=== PATIENT | male | born 1980 | race Caucasian/White ===

== ENCOUNTER 2016-08-27 08:33 | Day surgery (SDC) | payer MEDICAID ==
[~2016-08-27 08:33] MED LIST: Bupivacaine 0.25%/EPINEPHrine 1:200,000 10 ML SDV ONE; Lactated Ringers 1,000 ML IV SCH; Octyl 2-Cyanoacrylate 1 Tube ONE; ceFAZolin 2 GM in Premix Bag 1 BAG IV ONE
[2016-08-27] MEDS ORDERED: Acetaminophen/oxyCODONE 325-10 MG Tab PO PRN (09:42)
--- NOTE | 2016-08-27 09:42 | PCM.PREANE ---
Preanesthetic Assessment - Anesthesia/Transfusion/Family Hx Anesthesia History: Prior Anesthesia Without Reaction Family History of Anesthesia Reaction: Yes (nephew with hx of MH) Transfusion History: No Prior Transfusion(s) - Review of Systems General: No Symptoms Pulmonary: No Symptoms Cardiovascular: No Symptoms Gastrointestinal: No symptoms Neurological: No Symptoms Other: Reports: None - Physical Assessment NPO Status Date: 08/26/16 O2 Sat by Pulse Oximetry: 96 Respiratory Rate: 18 Vital Signs: Last Vital Signs Temp Pulse Resp 18 08/27/16 08:51 BP 133/79 08/27/16 08:51 Pulse Ox 96 08/27/16 08:51 Height: 1.68 m Weight: 90.718 kg ASA Class: 1 Mental Status: Alert & Oriented x3 Airway Class: Mallampati = 1 Dentition: Reports: Normal Dentition ROM/Head Extension: Full Lungs: Clear to auscultation, Normal respiratory effort Cardiovascular: Regular Rate, Regular Rhythm - Allergies Allergies/Adverse Reactions: Allergies Allergy/AdvReac Type Severity Reaction Status Date / Time MMR vaccine Allergy Nausea and Uncoded 08/22/16 13:46 Vomiting - Anesthesia Plan Pre-Op Medication Ordered: None - Acknowledgements Anesthesia Type Planned: General Anesthesia Pt an Appropriate Candidate for the Planned Anesthesia: Yes Alternatives and Risks of Anesthesia Discussed w Pt/Guardian: Yes Pt/Guardian Understands and Agrees with Anesthesia Plan: Yes Additional Comments: Will plan non-triggering anesthetic, No gasses have been used in that OR this morning. Will clean machine per manufacturers recommendations. Will use non triggering anesthetic, (propofol and Deon). Surgeon notified of delay. PreAnesthesia Questionnaire Other HEENT History: wears glasses, has capped upper front tooth Cardiovascular History: Reports: None Respiratory History: Reports: None Gastrointestinal History: Reports: GERD Genitourinary History: Reports: None Musculoskeletal History: Reports: Back pain, chronic, Fracture Other Musculoskeletal History: hx of left foot fx Neurological History: Reports: None Psychiatric History: Reports: None Endocrine/Metabolic History: Reports: Obesity/BMI 30+ Hematologic History: Reports: None Immunologic History: Reports: None Oncologic (Cancer) History: Reports: None Dermatologic History: Reports: None - Past Surgical History Head Surgeries/Procedures: Reports: None HEENT Surgical History: Reports: None Cardiovascular Surgical History: Reports: None Respiratory Surgical History: Reports: None GI Surgical History: Reports: None Male Surgical History: Reports: None Endocrine Surgical History: Reports: None Neurological Surgical History: Reports: None Musculoskeletal Surgical History: Reports: None Oncologic Surgical History: Reports: None Dermatological Surgical History: Reports: None - SUBSTANCE USE Smoking Status *Q: Former Smoker Tobacco Use Within Last Twelve Months: No Recreational Drug Use History: No - HOME MEDS Home Medications: Home Meds Levofloxacin 750 mg PO DAILY 08/22/16 [History] oxyCODONE HCl/Acetaminophen [Percocet 5-325 mg Tablet] 1 tab PO Q6H PRN [History] - CURRENT (IN HOUSE) MEDS Current Meds: Current Medications Lactated Ringer's (Ringers, Lactated) 1,000 mls @ 125 mls/hr IV ASDIRECTED [facility] Last Admin: 08/27/16 08:53 Dose: 125 mls/hr Discontinued Medications Bupivacaine HCl/Epinephrine Bitart (Marcaine 0.25%/Epinephrine 1:200,000) Confirm Administered Dose 20 ml .ROUTE .STK-MED ONE Stop: 08/27/16 07:45 Bupivacaine HCl/Epinephrine Bitart (Marcaine 0.25%/Epinephrine 1:200,000) Confirm Administered Dose 10 ml .ROUTE .STK-MED ONE Stop: 08/27/16 07:45 Cefazolin Sodium/Dextrose 2 gm (/ Premix) 50 mls @ 100 mls/hr IV ONETIME ONE Stop: 08/27/16 05:29 Octyl Cyanoacrylate (Dermabond Advance) Confirm Administered Dose 1 applic .ROUTE .STK-MED ONE Stop: 08/27/16 07:45 Preanesthetic Assessment - ANESTHESIA/TRANSFUSION/FAMILY HX Family History of Anesthesia Reaction: Yes - PHYSICAL ASSESSMENT O2 Sat by Pulse Oximetry: 96 RR: 18 Vital Signs: Last Vital Signs Temp Pulse Resp 18 08/27/16 08:51 BP 133/79 08/27/16 08:51 Pulse Ox 96 08/27/16 08:51 Height: 1.68 m Weight: 90.718 kg - ALLERGIES Allergies/Adverse Reactions: Allergies Allergy/AdvReac Type Severity Reaction Status Date / Time MMR vaccine Allergy Nausea and Uncoded 08/22/16 13:46 Vomiting
[2016-08-27] MEDS ORDERED: Propofol 200 MG/20 ML SDV ONE ×2 (09:46→10:07)
[2016-08-27] MEDS ORDERED: Lidocaine 2% 5 ML SDV ONE (09:47)
[2016-08-27] MEDS ORDERED: fentaNYL 250 MCG/5 ML SDV ONE (09:47)
[2016-08-27] MEDS ORDERED: Rocuronium 10 MG/ML 10 ML Syringe ONE (09:47)
[2016-08-27] MEDS ORDERED: Neostigmine Methylsulfate 1 MG/ML 5 ML Syringe ONE (09:47)
[2016-08-27] MEDS ORDERED: Ondansetron 4 MG/2 ML SDV ONE (09:47)
[2016-08-27] MEDS ORDERED: Ketorolac 30 MG/ML SDV ONE (09:47)
[2016-08-27] MEDS ORDERED: Sodium Chloride 0.9% 20 ML ONE ×2 (09:48→09:58)
[2016-08-27] MEDS ORDERED: Midazolam 1 MG/ML 2 ML SDV ONE (09:48)
[2016-08-27] MEDS ORDERED: HYDROmorphone 2 MG/ML Syringe ONE (09:48)
[2016-08-27] MEDS ORDERED: ceFAZolin 1 GM Vial ONE (09:49)
[2016-08-27] MEDS ORDERED: fentaNYL 100 MCG/2 ML SDV ONE (11:50)
--- NOTE | 2016-08-27 12:12 | PCM.OPNOTE ---
- General Post-Op/Procedure Note Date of Surgery/Procedure: 08/27/16 Findings: 1) gb has severe adherence to surrounding organs, yellow and green, thickened wall cw chronic and acute cholecystitis; [id number] Pre Op Diagnosis: chronic and acute cholecystitis Post-Op Diagnosis: Same Anesthesia Technique: General ET tube Primary Surgeon: Reginald Arreaga Pathology: sent Complications: None Condition: Good
--- NOTE | 2016-08-27 12:55 | PCM.POSTAN ---
POST ANESTHESIA ASSESSMENT - MENTAL STATUS Mental Status: alert, oriented - RESPIRATORY Respiratory Status: respiratory rate WNL, airway patent - CARDIOVASCULAR CV Status: pulse rate WNL, blood pressure stable - GASTROINTESTINAL GI Status: no symptoms - POST OP HYDRATION Hydration Status: adequate & stable
--- NOTE | 2016-08-27 13:13 | OR ---
SURGEON: Reginald Arreaga MD DATE OF PROCEDURE: 08/27/2016 PREOPERATIVE DIAGNOSIS: Chronic and acute cholecystitis. POSTOPERATIVE DIAGNOSIS: Chronic and acute cholecystitis. PROCEDURE PERFORMED: Laparoscopic cholecystectomy. COMPLICATIONS: None. FINDINGS: Gallbladder is severely adherent to surrounding organ and also wall was very thickened. Gallbladder wall was also yellow and green consistent with chronic and acute cholecystitis and wall is thickened. DESCRIPTION OF PROCEDURE: The patient was taken to the operating room and placed in the supine position. After the intubation of general endotracheal anesthesia, the patient's abdomen was prepped and draped in the usual sterile fashion. Using [employer], a 12 mm trocar was placed supraumbilically and then followed with pneumoperitoneum. A 5 mm trocar was placed in the epigastrium and two 5 mm trocars placed in the right upper quadrant. The placement of the last three trocars was done under direct video supervision. Upon gaining entrance to the abdominal cavity, an extensive examination was then performed. The gallbladder was located and identified and retracted to the dome of the liver at the triangle of [place]ot. The cystic duct was clipped three more times and then using the endoscopic clip, was transected with placement of the endoscopic clip and transection was performed with care, ensuring the posterior prong of the instruments were clearly visualized prior to exercising the procedure. The gallbladder was dissected using electrocautery out of the liver bed and then removed using endoscopic bag through the umbilical site. The gallbladder was removed en bloc and there was no bile spillage and this was then followed with extensive irrigation until the bile was clear from blood and bile. The trocars were then removed under direct video supervision. The 12 mm umbilical site was then closed with deep stitches using 0 Vicryl followed with proximal stitches using 3-0 Vicryl and Dermabond. The other three trocar sites were closed with 3-0 Vicryl followed with approximation of skin with Dermabond. The patient was then awakened and extubated and transferred to the recovery room in hemodynamically stable condition. At the conclusion of the surgery, before closing the abdominal wound, instrument count and sponge count were done and were correct. The patient tolerated the procedure well and there were no intraoperative complications. Dr. Arreaga was present through the whole procedure. Just before surgery, a timeout was called. The patient was identified and procedure identified and procedure started. As always, thank you for the kind referral. FRANCES / CHERELLE RODRIGUEZ: 08/27/2016 12:11:01 /[id number]
[2016-08-27] MEDS: fentaNYL 100 MCG/2 ML SDV IVPUSH PRN ×2 (13:19→13:26)
--- NOTE | 2016-08-27 15:02 | PCM48HPAN ---
Post Anesthesia Note - EVALUATION WITHIN 48HRS OF ANESTHETIC Vital Signs in Normal Range: Yes Patient Participated in Evaluation: Yes Respiratory Function Stable: Yes Airway Patent: Yes Cardiovascular Function Stable: Yes Hydration Status Stable: Yes Pain Control Satisfactory: Yes Nausea and Vomiting Control Satisfactory: Yes Mental Status Recovered: Yes - COMMENTS/OBSERVATIONS Free Text/Narrative:: No apparent anesthesia complications.
[2016-08-27 16:13] VITALS: BP 124/68
== END 2016-08-27 16:00 | disposition home or self-care (01) ==
LOC: MW.SDS 08:33
PROVIDERS: ATTEND Surgery
PROC: 0FT44ZZ Resection of Gallbladder, Percutaneous Endoscopic Approach (ICD-10-PCS; principal; 2016-08-27)
DX: K81.0 Acute cholecystitis (principal); K81.1 Chronic cholecystitis
CPT/HCPCS: 47562; A9270; J0690; J1170; J2250; J2405; J3010; J7120; 00790; 88304; J1885; J2704

== ENCOUNTER 2016-08-29 21:12 | Emergency (ER) | payer MEDICAID ==
[2016-08-29] MEDS ORDERED: Sodium Chloride 0.9% 2.5 ML Syringe FLUSH PRN (21:18)
[2016-08-29] MEDS ORDERED: Sodium Chloride 0.9% 10 ML Syringe FLUSH PRN (21:18)
--- NOTE | 2016-08-29 21:18 | EDM.PDOC ---
ED HPI GI/ABDOMINAL - General Stated Complaint: UNK Time Seen by Provider: 08/29/16 21:18 Source of Information: Reports: Patient History Limitations: Reports: No limitations - History of Present Illness INITIAL COMMENTS - FREE TEXT/NARRATIVE: HISTORY AND PHYSICAL: History of present illness: [36-year-old male 2 days status post cholecystectomy as an outpatient by Dr. Fish , now complaining of side effects of hyperactivity and feeling excessively energetic after taking oxycodone and then similar symptoms after being switched to tramadol. Patient states he did fine for the first couple days postoperatively but then today midday when he took a dose of oxycodone Tylenol shortly thereafter he felt very nervous and excessively energetic. He states he felt hyperactive and ran around getting things done. Physically he felt well from the standpoint of his postoperative state and he denies abdominal pain nausea vomiting or GI symptoms. Patient denies chest pain or shortness of breath. He states he does have a predisposition to anxiety and requires Xanax when he flies on an airplane Patient called as was concerned about these symptoms Dr. Fish called in tramadol for him patient took a dose of tramadol and states he had felt the same symptoms he came to the emergency room for evaluation. She is not currently on any antiarrhythmics to Review of systems: As per history of present illness and below otherwise all systems reviewed and negative. Past medical history: As per history of present illness and as reviewed below otherwise noncontributory. Surgical history: As per history of present illness and as reviewed below otherwise noncontributory. Social history: No reported history of drug or alcohol abuse. Family history: As per history of present illness and as reviewed below otherwise noncontributory. Physical exam: HEENT: Atraumatic, normocephalic, pupils reactive, negative for conjunctival pallor or scleral icterus, mucous membranes moist, throat clear, neck supple, nontender, trachea midline. Lungs: Clear to auscultation, breath sounds equal bilaterally, chest nontender. Heart: S1S2, regular, negative for clicks, rubs, or JVD. Abdomen: Soft, nondistended, nontender. Negative for masses or hepatosplenomegaly. Negative for costovertebral tenderness. Pelvis: Stable nontender. Genitourinary: Deferred. Rectal: Deferred. Extremities: Atraumatic, negative for cords or calf pain. Neurovascular unremarkable. Neuro: Awake, alert, oriented. Cranial nerves grossly unremarkable. Cerebellum unremarkable. Motor and sensory unremarkable throughout. Exam nonfocal. Diagnostics: [] Therapeutics: [] Impression: [] Plan: [Patient with symptoms of feeling hyperactive and uncomfortably energetic as if he had ingested excessive coffee. Does not have palpitations or chest pain nor dyspnea no cardiopulmonary symptoms. Neurologically the patient is completely intact. Symptoms seem suggestive of anxiety and patient does have a history of anxiety specifically requiring benzodiazepine treatment before flying an airplane. He seems calm at his baseline now his vital signs are unremarkable. Full workup pending an IV fluids administered. Full workup unremarkable including EKG. EKG shows normal sinus rhythm at 90 normal axis and no STEMI. Suspect anxiety component regarding medications. Xanax given by mouth. Patient feels asymptomatic on reevaluation his vitals are unremarkable and no further workup or treatment is indicated at this time. Definitive disposition and diagnosis as appropriate pending reevaluation and review of above. l - Related Data Allergies/ADRs: Allergies Allergy/AdvReac Type Severity Reaction Status Date / Time MMR vaccine Allergy Nausea and Uncoded 08/29/16 21:20 Vomiting Home Meds: Home Meds oxyCODONE HCl/Acetaminophen [Percocet 5-325 mg Tablet] 1 each PO Q6HR PRN #30 tablet 08/27/16 [Rx] traMADol HCl [Tramadol HCl] 50 mg PO Q8HR 08/29/16 [History] Past Medical History Other HEENT History: wears glasses, has capped upper front tooth Cardiovascular History: Reports: None Respiratory History: Reports: None Gastrointestinal History: Reports: GERD Genitourinary History: Reports: None Musculoskeletal History: Reports: Back pain, chronic, Fracture Other Musculoskeletal History: hx of left foot fx Neurological History: Reports: None Psychiatric History: Reports: None Endocrine/Metabolic History: Reports: Obesity/BMI 30+ Hematologic History: Reports: None Immunologic History: Reports: None Oncologic (Cancer) History: Reports: None Dermatologic History: Reports: None - Past Surgical History Head Surgeries/Procedures: Reports: None HEENT Surgical History: Reports: None Cardiovascular Surgical History: Reports: None Respiratory Surgical History: Reports: None GI Surgical History: Reports: None Male Surgical History: Reports: None Endocrine Surgical History: Reports: None Neurological Surgical History: Reports: None Musculoskeletal Surgical History: Reports: None Oncologic Surgical History: Reports: None Dermatological Surgical History: Reports: None Social & Family History - Family History Family Medical History: Noncontributory - Tobacco Use Smoking Status *Q: Former Smoker - Recreational Drug Use Recreational Drug Use: No Drug Use in Last 12 Months: No ED ROS GENERAL - Review of Systems Review Of Systems: See Below (PI) ED EXAM, GI/ABD - Physical Exam Exam: See Below (History of present illness) Course - Vital Signs Last Recorded V/S: Last Vital Signs Temp 36.8 C 08/29/16 22:49 Pulse 87 08/29/16 22:49 Resp 17 08/29/16 22:49 BP 159/101 H 08/29/16 22:49 Pulse Ox 95 08/29/16 22:49 - Orders/Labs/Meds Orders: Active Orders 24 hr Category Date Time Status EKG Documentation Completion [RC] STAT Care 08/29/16 21:35 Active Abdomen Pelvis w Cont [CT] Stat Exams 08/29/16 21:19 Stop Req Sodium Chloride 0.9% [Normal Saline] 1,000 ml Med 08/29/16 21:45 Active IV ASDIRECTED Sodium Chloride 0.9% [Saline Flush] Med 08/29/16 21:18 Active 10 ml FLUSH ASDIRECTED PRN Sodium Chloride 0.9% [Saline Flush] Med 08/29/16 21:18 Active 2.5 ml FLUSH ASDIRECTED PRN Peripheral IV Insertion Adult [OM.PC] Stat Oth 08/29/16 21:19 Ordered Medication Orders Sodium Chloride (Normal Saline) 1,000 mls @ 999 mls/hr IV ASDIRECTED [facility] Last Admin: 08/29/16 21:57 Dose: 999 mls/hr Sodium Chloride (Saline Flush) 10 ml FLUSH ASDIRECTED PRN PRN Reason: Keep Vein Open Last Admin: 08/29/16 21:57 Dose: 10 ml Sodium Chloride (Saline Flush) 2.5 ml FLUSH ASDIRECTED PRN PRN Reason: Keep Vein Open Last Admin: 08/29/16 21:57 Dose: 2.5 ml Labs: Laboratory Tests 08/29/16 08/29/16 08/29/16 Range/Units 21:31 21:31 21:31 WBC 9.61 (4.0-11.0) K/uL RBC 4.87 (4.50-5.90) M/uL Hgb 14.3 (13.0-17.0) g/dL Hct 41.5 (38.0-50.0) % MCV 85.2 (80.0-98.0) fL MCH 29.4 (27.0-32.0) pg MCHC 34.5 (31.0-37.0) g/dL RDW Std Deviation 39.3 (28.0-62.0) fl RDW Coeff of Sal 13 (11.0-15.0) % Plt Count 197 (150-400) K/uL MPV 11.60 (7.40-12.00) fL Neut % (Auto) 82.3 H (48.0-80.0) % Lymph % (Auto) 8.8 L (16.0-40.0) % [place] % (Auto) 7.8 (0.0-15.0) % Eos % (Auto) 0.9 (0.0-7.0) % Baso % (Auto) 0.2 (0.0-1.5) % Neut # (Auto) 7.9 H (1.4-5.7) K/uL Lymph # (Auto) 0.9 (0.6-2.4) K/uL [place] # (Auto) 0.8 (0.0-0.8) K/uL Eos # (Auto) 0.1 (0.0-0.7) K/uL Baso # (Auto) 0.0 (0.0-0.1) K/uL Nucleated RBC % 0.0 /100WBC Nucleated RBCs # 0 K/uL Sodium 140 (136-146) mmol/L Potassium 3.4 L (3.5-5.1) mmol/L Chloride 107 (98-110) mmol/L Carbon Dioxide 21 (21-31) mmol/L BUN 11 (6.0-23.0) mg/dL Creatinine 1.1 (0.6-1.5) mg/dL Est Cr Clr Drug Dosing 85.96 mL/min Estimated GFR (MDRD) > 60.0 ml/min Glucose 123 H (60-110) mg/dL Calcium 9.3 (8.8-10.8) mg/dL Total Bilirubin 0.7 (0.1-1.5) mg/dL AST 41 H (5-40) IU/L ALT 53 (8-54) IU/L Alkaline Phosphatase 116 (40-150) Troponin I < 0.10 (0.0-0.29) NG/ML Total Protein 8.2 H (6.0-8.0) g/dL Albumin 4.1 (3.5-5.0) g/dL Globulin 4.1 H (2.0-3.5) g/dL Albumin/Globulin Ratio 1.0 L (1.3-2.8) Lipase 55 (7-80) U/L Urine Color Urine Appearance Urine pH (5.0-8.0) Ur Specific Anna (1.001-1.035) Urine Protein (NEGATIVE) mg/dL Urine Glucose (UA) (NEGATIVE) mg/dL Urine Ketones (NEGATIVE) mg/dL Urine Occult Blood (NEGATIVE) Urine Nitrite (NEGATIVE) Urine Bilirubin (NEGATIVE) Urine Urobilinogen (<2.0) EU/dL Ur Leukocyte Esterase (NEGATIVE) Urine RBC (0-2/HPF) Urine WBC (0-5/HPF) Ur Epithelial Cells (NONE-FEW) Urine Bacteria (NEGATIVE) 08/29/16 Range/Units 22:46 WBC (4.0-11.0) K/uL RBC (4.50-5.90) M/uL Hgb (13.0-17.0) g/dL Hct (38.0-50.0) % MCV (80.0-98.0) fL MCH (27.0-32.0) pg MCHC (31.0-37.0) g/dL RDW Std Deviation (28.0-62.0) fl RDW Coeff of Sal (11.0-15.0) % Plt Count (150-400) K/uL MPV (7.40-12.00) fL Neut % (Auto) (48.0-80.0) % Lymph % (Auto) (16.0-40.0) % [place] % (Auto) (0.0-15.0) % Eos % (Auto) (0.0-7.0) % Baso % (Auto) (0.0-1.5) % Neut # (Auto) (1.4-5.7) K/uL Lymph # (Auto) (0.6-2.4) K/uL [place] # (Auto) (0.0-0.8) K/uL Eos # (Auto) (0.0-0.7) K/uL Baso # (Auto) (0.0-0.1) K/uL Nucleated RBC % /100WBC Nucleated RBCs # K/uL Sodium (136-146) mmol/L Potassium (3.5-5.1) mmol/L Chloride (98-110) mmol/L Carbon Dioxide (21-31) mmol/L BUN (6.0-23.0) mg/dL Creatinine (0.6-1.5) mg/dL Est Cr Clr Drug Dosing mL/min Estimated GFR (MDRD) ml/min Glucose (60-110) mg/dL Calcium (8.8-10.8) mg/dL Total Bilirubin (0.1-1.5) mg/dL AST (5-40) IU/L ALT (8-54) IU/L Alkaline Phosphatase (40-150) Troponin I (0.0-0.29) NG/ML Total Protein (6.0-8.0) g/dL Albumin (3.5-5.0) g/dL Globulin (2.0-3.5) g/dL Albumin/Globulin Ratio (1.3-2.8) Lipase (7-80) U/L Urine Color YELLOW Urine Appearance CLEAR Urine pH 6.5 (5.0-8.0) Ur Specific Anna <= 1.005 (1.001-1.035) Urine Protein 30 (NEGATIVE) mg/dL Urine Glucose (UA) NEGATIVE (NEGATIVE) mg/dL Urine Ketones TRACE H (NEGATIVE) mg/dL Urine Occult Blood LARGE H (NEGATIVE) Urine Nitrite NEGATIVE (NEGATIVE) Urine Bilirubin NEGATIVE (NEGATIVE) Urine Urobilinogen 0.2 (<2.0) EU/dL Ur Leukocyte Esterase NEGATIVE (NEGATIVE) Urine RBC 26-30 (0-2/HPF) Urine WBC 0-1 (0-5/HPF) Ur Epithelial Cells RARE (NONE-FEW) Urine Bacteria RARE (NEGATIVE) Meds: Medications Generic Name Dose Route Start Last Admin Trade Name Freq PRN Reason Stop Dose Admin Sodium Chloride 1,000 mls @ 999 mls/hr 08/29/16 21:45 08/29/16 21:57 Normal Saline IV 999 mls/hr ASDIRECTED [facility] Administration Sodium Chloride 10 ml 08/29/16 21:18 08/29/16 21:57 Saline Flush FLUSH 10 ml ASDIRECTED PRN Administration Keep Vein Open Sodium Chloride 2.5 ml 08/29/16 21:18 08/29/16 21:57 Saline Flush FLUSH 2.5 ml ASDIRECTED PRN Administration Keep Vein Open Discontinued Medications Generic Name Dose Route Start Last Admin Trade Name Milo PRN Reason Stop Dose Admin Alprazolam 0.5 mg 08/29/16 23:08 Xanax PO 08/29/16 23:09 ONETIME ONE Departure - Departure Time of Disposition: 23:18 Disposition: Home, Self-Care 01 Condition: good Clinical Impression: Medication reaction, Anxiety Referrals: PCP,None [Primary Care Provider] - Forms: ED Department Discharge Additional Instructions: It appears that you experience anxiety after taking her medication today. Use Xanax as needed as prescribed for any feeling of "hyperactivity. "Followup with your doctor in the next day or 2 and follow up with Dr. Arreaga as scheduled. I discussed her case with Dr. ARREAGA this evening and he said if you have any concerns you be happy to see you in his office tomorrow morning and will be fine to just stop in without an appointment. Return immediately for new severe or worsening symptoms. - My Orders Last 24 Hours: My Active Orders 08/29/16 21:18 Sodium Chloride 0.9% [Saline Flush] 10 ml FLUSH ASDIRECTED PRN Sodium Chloride 0.9% [Saline Flush] 2.5 ml FLUSH ASDIRECTED PRN 08/29/16 21:19 Abdomen Pelvis w Cont [CT] Stat Peripheral IV Insertion Adult [OM.PC] Stat 08/29/16 21:35 EKG Documentation Completion [RC] STAT 08/29/16 21:45 Sodium Chloride 0.9% [Normal Saline] 1,000 ml IV ASDIRECTED - Assessment/Plan Last 24 Hours: My Active Orders 08/29/16 21:18 Sodium Chloride 0.9% [Saline Flush] 10 ml FLUSH ASDIRECTED PRN Sodium Chloride 0.9% [Saline Flush] 2.5 ml FLUSH ASDIRECTED PRN 08/29/16 21:19 Abdomen Pelvis w Cont [CT] Stat Peripheral IV Insertion Adult [OM.PC] Stat 08/29/16 21:35 EKG Documentation Completion [RC] STAT 08/29/16 21:45 Sodium Chloride 0.9% [Normal Saline] 1,000 ml IV ASDIRECTED
[2016-08-29] MEDS ORDERED: Sodium Chloride 0.9% 1,000 ML IV SCH (21:45)
[2016-08-29 21:55] LABS: CHLORIDE,CL 107 mmol/L (98-110); SODIUM,NA 140 mmol/L (136-146)
[2016-08-29] MEDS ORDERED: ALPRAZolam 0.25 MG Tab PO ONE (23:08)
[2016-08-29 23:53] VITALS: BP 149/98
== END 2016-08-29 23:52 | disposition home or self-care (01) ==
LOC: MW.ED 21:12
DX: F41.9 Anxiety disorder, unspecified (principal); T50.905A Adverse effect of unspecified drugs, medicaments and biological substances, initial encounter; K21.9 Gastro-esophageal reflux disease without esophagitis; E66.9 Obesity, unspecified; Z68.30 Body mass index [BMI] 30.0-30.9, adult; Z88.7 Allergy status to serum and vaccine; Z87.891 Personal history of nicotine dependence
CPT/HCPCS: 36415; 80053; 81001; 83690; 84484; 85025; 93005; 96360; 99284; A9270; J7040; 99283